=== PATIENT | female | born 1995 | race Hispanic/Latino ===

== ENCOUNTER 2019-02-10 10:24 | Emergency (ER) | payer SELFPAY ==
[2019-02-10 11:07] LABS: Hemoglobin 11.3 g/dL (12.0-16.0); Mean Corpuscular HGB CONC 32.3 g/dL (32.0-36.0); Mean Corpuscular Hemoglobin 22.9 pg (27.0-31.0); Mean Platelet Volume 11.4 fL (7.4-10.4); Platelet Count 273 thou/uL (130-400); RBC Distribution Width 19.3 % (11.5-14.5); Red Blood Cell (RBC) Count 4.93 mill/uL (4.20-5.40)
[2019-02-10 11:11] LABS: BHCG - Serum POSITIVE (NEGATIVE); Pregs Control Background? CLEAR/WHITE (CLR/WHITE); Pregs Control Bar Appear? YES (CONTROL BAR)
[2019-02-10 11:30] LABS: #Lymphocytes 2.3 thou/uL (1.20-3.40); #Monocytes 0.3 thou/uL (0.11-0.59); #Neutrophils 6.4 thou/uL (1.40-6.50); %Basophils 0.4 % (0.0-1.0); %Eosinophils 0.3 % (0.0-10.0); %Monocytes 3.4 % (0.0-10.0); %Neutrophils 70.9 % (42.0-75.0); Anisocytosis SLIGHT = 6-15 cells (100X) (0-5/hpf); Hypochromia SLIGHT = 6-15 cells (100X) (0-5/hpf); Large Platelets SLIGHT; MDiff Complete? YES; Microcytosis SLIGHT = 6-15 cells (100X) (0-5/hpf); Platelet Morphology Comment Appears Adequate
--- NOTE | 2019-02-10 11:42 | ULT ---
Exam: Transabdominal and endovaginal pelvic ultrasound HISTORY:Vaginal bleeding. Serum beta HCG is 311.48 COMPARISON: None TECHNIQUE: Transabdominal and endovaginal imaging of the pelvis is performed. Ovaries are interrogate d with grayscale, color flow, Doppler imaging and spectral wave form analysis FINDINGS: Uterus: No myometrial masses. Uterus measurin.8 x 5.6 x 7.5 cm. Endometrium: Homogeneous echotexture. Endometrium diameter: 1.6 cm. No sonographic evidence of a gestational sac and yolk sac or pole within the endometrium. Free fluid: None Right ovary: Normal echotexture Right ovary measurement: 1.5 x 2.3 x 2.5 cm Left ovary: Normal echotexture. Evaluation is limited due to location of the left ovary. Left ovary measurements: 1.1 x 3.2 x 2.6 cm Ovarian Doppler: There is vascular flow to the left and right ovary. IMPRESSION: 1. No sonographic evidence of a gestational sac, yolk sac or pole. Endometrium is 1.6 cm. 2. Positive serum beta HCG. Findings may represent an early intrauterine versus a sonograph ically occult ectopic versus a missed spontaneous . Follow-up ultrasound and serial beta-hCG are recommended.
[2019-02-10 12:16] LABS: Bacteria/HPF None Seen HPF (None Seen); Bilirubin Negative (Negative); Blood, Urine 1+ (Negative); Clarity Clear (Clear); Glucose, Urine (Dipstick) Normal (Negative); Leukocyte Negative Leu/uL (Negative); Nitrite Negative (Negative); Protein, Urine (Dipstick) Negative (Neg-Trace); RBC/HPF 0-3 HPF (0-3); Squamous Epithelial 0-3 HPF (0-3); Urobilinogen Normal mg/dL (Less than 2); WBC/HPF 0-3 HPF (0-3)
[2019-02-12 00:45] LABS: Chlamydia by PCR Not Detected (NotDetected); GC by PCR Not Detected (NotDetected)
== END 2019-02-10 12:10 | disposition home or self-care (01) ==
LOC: ERS 10:24
DX: O20.0 Threatened abortion (principal); Z3A.01 Less than 8 weeks gestation of pregnancy
CPT/HCPCS: 36415; 76856; 81003; 81015; 84702; 84703; 85025; 86900; 86901; 87480; 87491; 87510; 87591; 87660

== ENCOUNTER 2019-04-29 10:23 | Emergency (ER) | payer SELFPAY ==
[2019-04-29 10:49] LABS: Hemoglobin 12.5 g/dL (12.0-16.0); Mean Corpuscular HGB CONC 32.7 g/dL (32.0-36.0); Mean Corpuscular Hemoglobin 24.1 pg (27.0-31.0); Mean Corpuscular Volume 73.8 fL (78.0-98.0); Platelet Count 251 thou/uL (130-400); Red Blood Cell (RBC) Count 5.17 mill/uL (4.20-5.40); White Blood Cell (WBC) Count 5.3 thou/uL (4.8-10.8)
[2019-04-29 10:50] LABS: #Lymphocytes 1.4 thou/uL (1.20-3.40); #Monocytes 0.3 thou/uL (0.11-0.59); #Neutrophils 3.6 thou/uL (1.40-6.50); %Basophils 0.1 % (0.0-1.0); %Lymphocytes 26.2 % (21.0-51.0); %Monocytes 5.7 % (0.0-10.0)
[2019-04-29 11:16] LABS: MDiff Complete? YES; Microcytosis SLIGHT = 6-15 cells (100X) (0-5/hpf); Platelet Morphology Comment Appears Adequate; Polychromasia SLIGHT = 2-3 cells (100X) (0-2/hpf)
[2019-04-29 11:22] LABS: ALT (SGPT) 31 U/L (8-55); AST (SGOT) 26 U/L (5-34); Albumin 4.2 g/dL (3.5-5.0); Alkaline Phosphatase 99 U/L (40-110); Anion Gap 13 mmol/L (10-20); BUN (Urea Nitrogen) 5 mg/dL (7.0-18.7); Bilirubin, Total 0.3 mg/dL (0.2-1.2); Calc. Creatinine Clearance 0 mL/min (70-130); Calcium 8.8 mg/dL (7.8-10.44); Carbon Dioxide 24 mmol/L (22-29); Chloride 100 mmol/L (98-107); Estimated GFR-MDRD Greater than 90; Globulin 3.9 g/dL (2.4-3.5); Glucose 113 mg/dL (70-105); Potassium 3.3 mmol/L (3.5-5.1); Protein, Total 8.1 g/dL (6.0-8.3); Sodium 134 mmol/L (136-145)
[2019-04-29 11:25] LABS: Bacteria/HPF None Seen HPF (None Seen); Bilirubin Negative (Negative); Blood, Urine Negative (Negative); Clarity Clear (Clear); Glucose, Urine (Dipstick) Normal (Negative); Leukocyte 25 Leu/uL (Negative); Nitrite Negative (Negative); Protein, Urine (Dipstick) Negative (Neg-Trace); RBC/HPF None Seen HPF (0-3); Squamous Epithelial 0-3 HPF (0-3); Urobilinogen Normal mg/dL (Less than 2); WBC/HPF 0-3 HPF (0-3)
[2019-04-29] MEDS ORDERED: Potassium Chloride 20 MEQ TAB ONE (11:40)
== END 2019-04-29 12:13 | disposition home or self-care (01) ==
LOC: ERS 10:23
DX: O99.511 Diseases of the respiratory system complicating pregnancy, first trimester (principal); J11.1 Influenza due to unidentified influenza virus with other respiratory manifestations; O99.281 Endocrine, nutritional and metabolic diseases complicating pregnancy, first trimester; E86.0 Dehydration; Z3A.10 10 weeks gestation of pregnancy
CPT/HCPCS: 36415; 80053; 81003; 81015; 85025; 87086; 87804; 96360; 96361

== ENCOUNTER → 2019-11-24 | Day surgery (SDC) | payer OTHER ==
[~2019-11-24] MED LIST: hydrALAZINE 20 MG/ML VIAL SLOW IVP PRN
[2019-11-24 10:38] VITALS: BMI 33.4
--- NOTE | 2019-11-24 11:34 | PDOC.FPROB ---
FMR OB H&P: HPI - History of Present Illness Chief Complaint: elevated BPs History of Present Illness: Pt is a 23yo at 38.2 wks by 16.1wk sono who presents for evaluation of elevated BP recorded at [facility], 141/72, 130/90. Has a hx of A1GDM, controlled, only medication is PNV. Pt has been taking her BP once daily at home and she states normal is Ps <130. Mild, intermittent CARUSO since yesterday, not treated. Postitive for movement and clear discharge. Denies abdominal pain, LOF, vaginal bleeding and contractions. Primary Care Physician: [facility] FMR OB H&P: Current - Care : 2 Para: 0 Gestational age: 38.2 Due date: 12/06/19 Dating Criteria: 16.1 wk sono Course/Complications: A1GDM - OB Labs Blood type: B RH: positive Antibody Screen: negative HIV: negative RPR: negative HepBsAg: negative Rubella: immune Gonorrhea: negative Chlamydia: negative 1 hour gtt: 146 3 hour GTT: 2hr 162 A1c: 5.2 GBS: negative H&H: 12.8/37.2 on 10/20/19 Platelets: 187 Additional labs: urine pr/cron 07/3019 was 0.13 - Additional Ultrasound Additional: 10/01/19 [place] 52% FMR OB H&P: History - Past Medical History PMH: none - OB History OB History: A1GDM, one SAB - [facility] History [facility] History: NILM - Surgical History Sx History: none - Family History Family History: DM, HTN, no hx of genetic disorders FMR OB H&P: Medications - Current Home Medications: Medication Instructions Recorded Confirmed Type Pnv No.95/Ferrous Fum/Folic AC 1 tablet PO DAILY 11/24/19 11/24/19 History [ Tablet] Allergies/Adverse Reactions: Allergies Allergy/AdvReac Type Severity Reaction Status Date / Time No Known Allergies Allergy Unverified 11/24/19 10:33 FMR OB H&P: ROS - Review of Systems General: denies: fever/chills Eyes: reports: floaters ENT: denies: nasal congestion Cardiovascular: reports: edema. denies: chest pain, palpitation Respiratory: denies: cough, congestion, shortness of breath Gastrointestinal: denies: abdominal pain, nausea, vomiting Genitourinary (Female): reports: vaginal discharge. denies: dysuria, vaginal pain, vaginal bleeding Neurologic: reports: headache (mild, intermittent) FMR OB H&P: Vital Signs - Maternal Vital signs: BP 121/84, 130/80 - Heart Tones Baseline: 140 Variability: moderate Acceleration: present Deceleration: absent Category: category 1 [place] contractions every: none FMR OB H&P: Physical Exam - Physical Exam General: NAD HEENT: normocephalic and atraumatic, grossly normal vision, grossly normal hearing Neck: supple Heart: RRR, normal S1/S2, no edema General: CTAB, no respiratory distress Abdomen: gravid, non-tender Musculoskeletal: FROM in all four extremities Neurological: no focal deficit Skin: no rash Psychiatric: normal mood and affect FMR OB H&P: A/P Discussion: Date/Time: 11/24/19 1129 Pt is a 24yo at 38.2wks who presents from [facility] for elevated BPs #suspected gHTN -BPs at [facility] were 141/72 and 130/90. Here they have been normal -VSS, asymptomatic -takes BP at home, have been normal -ordered CBC, CMP, urine pr/cr -continuous monitor #A1GDM -not on medication, takes BS at home, have been normal #sIUP -FHT Cat 1: 145/mod/+accel/no decel -bedside U/S showed cephalic presentation -has induction scheduled for 11/29/19 -continue routine f/u at [facility] Code: Full Dispo: Stable, pt being triaged for evaluation of gHTN vs preE This H&P was discussed with [Arik] and [Airam] who agree with the above documentation and plan. Signature: Genoveva Christina, PGY1 Addendum - Attending - Attending Attestation Date/Time: 11/24/19 1318 I personally evaluated the patient and discussed the management with Dr. Christina. I agree with the History, Examination, Assessment and Plan documented above.
[2019-11-24 12:19] LABS: #Lymphocytes 1.4 thou/uL (1.20-3.40); #Monocytes 0.3 thou/uL (0.11-0.59); #Neutrophils 3.7 thou/uL (1.40-6.50); %Basophils 0.8 % (0.0-1.0); %Eosinophils 0.3 % (0.0-10.0); %Lymphocytes 25.4 % (21.0-51.0); %Monocytes 4.8 % (0.0-10.0); %Neutrophils 68.7 % (42.0-75.0); Hemoglobin 13.8 g/dL (12.0-16.0); Mean Corpuscular HGB CONC 34.9 g/dL (32.0-36.0); Mean Corpuscular Volume 88.8 fL (78.0-98.0); Mean Platelet Volume 10.6 fL (7.4-10.4); Platelet Count 162 thou/uL (130-400); RBC Distribution Width 12.5 % (11.5-14.5); Red Blood Cell (RBC) Count 4.44 mill/uL (4.20-5.40); White Blood Cell (WBC) Count 5.4 thou/uL (4.8-10.8)
[2019-11-24 12:21] LABS: Creatinine, Urine 121.87 mg/dL (47-110)
[2019-11-24 12:45] LABS: ALT (SGPT) 29 U/L (8-55); AST (SGOT) 26 U/L (5-34); Albumin 3.4 g/dL (3.5-5.0); Alkaline Phosphatase 298 U/L (40-110); Anion Gap 14 mmol/L (10-20); BUN (Urea Nitrogen) 11 mg/dL (7.0-18.7); Bilirubin, Total 0.7 mg/dL (0.2-1.2); Calc. Creatinine Clearance 162 mL/min (70-130); Calcium 9.2 mg/dL (7.8-10.44); Carbon Dioxide 20 mmol/L (22-29); Chloride 105 mmol/L (98-107); Estimated GFR-MDRD Greater than 90; Globulin 3.7 g/dL (2.4-3.5); Glucose 85 mg/dL (70-105); Potassium 4.1 mmol/L (3.5-5.1); Protein, Total 7.1 g/dL (6.0-8.3); Sodium 135 mmol/L (136-145)
--- NOTE | 2019-11-24 13:31 | PDOC.BPN ---
<Sheron Barry - Last Filed: 11/24/19 13:31> - Brief Progress Note Pt is a 24yo at 38.2wks who presented from [facility] for elevated BPs #gHTN -BPs at [facility] were 141/72 and 130/90. -Patient was monitored for the last 4 hours and had 2 slightly elevated BP of 143/86 and 134/90. Will diagnose patient with gHTN at this time. -takes BP at home, have been normal. Encouraged patient to continue to take BP BID at home. Discussed ED precautions and patient agreeable with plan of care -ordered CBC, CMP nml. Urine prot:creat 0.1 -FHT: reactive strip #A1GDM -not on medication, takes BS at home, have been normal #sIUP -FHT Cat 1: 145/mod/+accel/no decel -bedside U/S showed cephalic presentation -has induction scheduled for 11/29/19, COVID test albaro 11/25 -continue routine f/u at [facility] Code: Full Dispo: Stable, patient to be discharged with instructions to continue to monitor BP BID at home. ED precautions discussed. Discussed plans for albaro COVID testing and induction, patient agreeable with plan of care This H&P was discussed with Dr. Alegria who agrees with the above documentation and plan. Signature: Sheron Barry MD PGY-2 <Dante Alegria - Last Filed: 11/24/19 13:48> Addendum - Attending - Attending Attestation Date/Time: 11/24/19 8818 I personally evaluated the patient and discussed the management with Dr. Barry. I agree with the Assessment and Plan documented above.
== END ==
LOC: L&D/OP 10:02
PROVIDERS: ATTEND Obstetrics & Gynecology
DX: O13.3 Gestational [pregnancy-induced] hypertension without significant proteinuria, third trimester (principal); O24.410 Gestational diabetes mellitus in pregnancy, diet controlled; Z3A.38 38 weeks gestation of pregnancy
CPT/HCPCS: 36415; 80053; 82570; 84156; 85025; 99283